=== PATIENT | female | born 1965 | race Caucasian/White ===

== ENCOUNTER 2016-08-15 07:27 | Day surgery (SDC) | payer MEDICARE, OTHER ==
[~2016-08-15] VITALS: Ht 152.4 cm; Wt 88.5 kg
[~2016-08-15 07:27] MED LIST: ACETTAB3 OR; ALBUTEROL SUL0.083 % IN; ANTI-FUNGAL12 TOP; ANUCORT-HC25 MG RE; ARTHROTEC 75 OR; ARTHROTEC 75 PO; ASPIRIN LOW DOS81 M2 PO; AZULFIDINE500 M1 PO; BACTRIM DS1 TAB PO; BENADRYL25 MG PO; BIOTIN5000 MC1 PO; BL GAS RELIE125 MG OR; BUPROPION150 MG PO; BUPROPION75 MG OR; BUSPAR5 MG PO; BUSPIRONE15 MG PO; BUSPIRONE5 MG PO; CELEXA20 M1 OR; CELEXA20 MG PO; CELEXA40 MG OR; CIPRO500 MG OR; CIPROFLOXACN250 MG PO; CITALOPRAM40 MG PO; CLARITIN10 M1 OR; CLARITIN10 MG OR; CLOTRIMAZOLE1 %; CLOTRIMAZOLE1 % TOP; CORRECTOL100 MG PO; CRANBERRY500 MG PO; CYTOTEC100 MCG PO; DICLOFENAC SOD100 M1 PO; DICLOFENAC75 MG PO; DILAUDID 2MG2 MG/TA1 PO; DULOXETINE HCL30 MG PO; ERYTHROMYCIN BAS1 GM OU; ESTRADIOL0.5 MG PO; FE C PO; FISH OIL MAXI1200 M1; FISH OIL1400 MG PO; FLEXERIL PO; FLONASE NASAL50 MCG; GABAPENTIN100 MG PO; GABAPENTIN400 MG PO; GAS RELIEF125 M2 PO; HALOPERIDOL0.5 MG PO; HYDROCHLORO25 MG/TAB PO; HYDROCHLOROT25 MG OR; HYDROCHLOROT25 MG PO; HYDROCODONE/ACE1 TAB PO; IMITREX100 M1 OR; IMITREX100 M1 PO; IMITREX25 MG PO; IRON FORMULA PO; KEFLEX500 M1 PO; KETOROLAC60 MG/2 ML IJ; LEVOTHYROXIN75 MCG PO; LIPITOR20 MG OR; LIPITOR40 MG PO; LIPITOR80 M1; LIPITOR80 MG PO; LORTAB 10 PO; LORTAB 1010 MG PO; LORTAB 5 OR; LORTAB 5/3255 MG PO; METHOTREXATE2.5 MG PO; METRONIDAZOL0.75 % VA; MIRALAX3350 NF PO; MOTRIN800 MG PO; MULTI VIT PO; NORCO1 TA1 OR; NORCO1 TA1 PO; OMEGA 31000 MG PO; PANTOPRAZOLE SO40 MG PO; PERCOCET 5/325M1 TAB OR; POLYETHYLENE3350 MG; POLYETHYLENE3350 MG PO; PREMARIN0.3 MG PO; PROAIR HFA IN; PROCTOSOL HC2.5 % RE; PROCTOZONE1 CRE RE; PROMETHAZINE12.5 M3 PO; PROMETHAZINE12.5 MG PO; PROVENTIL HFA IN; PROVENTIL0.083 % IN; PROVERA5 MG PO; QVAR40 MCG IN; SIMVASTATIN10 MG OR; SINGULAIR10 MG PO; TIZANIDINE HCL2 M1 PO; TIZANIDINE HCL2 MG PO; TIZANIDINE HCL4 M1 PO; TIZANIDINE HCL6 MG PO; TIZANIDINE2 MG PO; TIZANIDINE4 MG PO; TRAMADOL HCL50 MG OR; TRAZODONE HCL150 MG PO; TRAZODONE HCL50 MG PO; TRAZODONE100 MG OR; TRAZODONE150 MG PO; TRAZODONE50 MG OR; TRAZODONE50 MG PO; TRIAM/NYSTAT TOP; TRICOR145 MG PO; TRICOR48 MG PO; ULTRAM50 M1 PO; ULTRAM50 MG OR; ULTRAM50 MG PO; VENTOLIN HF1 IN; VIT E COMPLX400 UNIT PO; WELLBUTRIN SR150 MG PO; WELLBUTRIN100 M2 PO; WELLBUTRIN200 M1 PO; ZINC OXIDE 40% EX; ZOFRAN4 MG/TAB PO; ZOLPIDEM10 M1 PO; ZOLPIDEM5 M1 PO; ZOLPIDEM5 MG PO; ZPAK PO
[2016-08-15] MEDS ORDERED: NORCO1 TA1 PO (11:18)
[2016-08-15 11:55] VITALS: BP 177/85
== END 2016-08-15 12:00 | disposition home or self-care (01) ==
LOC: ORM 07:27
PROC: 0UDB7ZX Extraction of Endometrium, Via Natural or Artificial Opening, Diagnostic (ICD-10-PCS; principal; 2016-08-15)
DX: N95.0 Postmenopausal bleeding (principal); N93.8 Other specified abnormal uterine and vaginal bleeding; R93.8 Abnormal findings on diagnostic imaging of other specified body structures; I10 Essential (primary) hypertension; E11.9 Type 2 diabetes mellitus without complications; J44.9 Chronic obstructive pulmonary disease, unspecified; J45.909 Unspecified asthma, uncomplicated; E05.90 Thyrotoxicosis, unspecified without thyrotoxic crisis or storm; F20.9 Schizophrenia, unspecified; F33.9 Major depressive disorder, recurrent, unspecified; Z80.49 Family history of malignant neoplasm of other genital organs; Z82.49 Family history of ischemic heart disease and other diseases of the circulatory system

== ENCOUNTER 2016-10-15 13:13 | Emergency (ER) | payer MEDICARE, OTHER ==
[~2016-10-15] VITALS: Ht 152.4 cm; Wt 80.0 kg
[2016-10-15] MEDS ORDERED: SILVADENE1 % EX (13:30)
[2016-10-15 14:05] VITALS: BP 136/73
== END 2016-10-15 14:10 | disposition home or self-care (01) ==
LOC: ED 13:13
DX: L55.1 Sunburn of second degree (principal); Y92.832 Beach as the place of occurrence of the external cause

== ENCOUNTER 2017-04-01 00:22 | Emergency (ER) | payer MEDICARE, OTHER ==
[~2017-04-01] VITALS: Ht 152.4 cm; Wt 95.0 kg
[~2017-04-01 00:22] MED LIST changes: +SILVADENE1 % EX
[2017-04-01] MEDS ORDERED: PRED FORTE1 % AD (00:36)
[2017-04-01] MEDS ORDERED: IRON SLOW RELEA45 MG PO (00:36)
[2017-04-01] MEDS ORDERED: CIPRODEX1 ML OT (00:37)
[2017-04-01] MEDS ORDERED: CLIMARA0.025 MG/2 PO (00:37)
[2017-04-01] MEDS ORDERED: MEDROXYPROGESTER5 MG PO (00:38)
[2017-04-01] MEDS ORDERED: ZETIA10 MG PO (00:38)
[2017-04-01] MEDS ORDERED: TRAMADOL HCL50 MG PO (00:39)
[2017-04-01] MEDS ORDERED: ZPAK PO (01:06)
[2017-04-01] MEDS ORDERED: ULTRAM50 M1 PO (01:08)
[2017-04-01] MEDS ORDERED: CIPROFLOXACN500 MG PO (01:10)
[2017-04-01 01:20] VITALS: BP 166/83
== END 2017-04-01 01:22 | disposition home or self-care (01) ==
LOC: ED 00:22
DX: J02.9 Acute pharyngitis, unspecified (principal); H66.91 Otitis media, unspecified, right ear; E78.00 Pure hypercholesterolemia, unspecified; F32.9 Major depressive disorder, single episode, unspecified

== ENCOUNTER 2017-09-04 23:16 | Emergency (ER) | payer MEDICARE, OTHER ==
[~2017-09-04] VITALS: Ht 152.4 cm; Wt 91.6 kg
[~2017-09-04 23:16] MED LIST changes: +CIPRODEX1 ML OT; +CIPROFLOXACN500 MG PO; +CLIMARA0.025 MG/2 PO; +IRON SLOW RELEA45 MG PO; +MEDROXYPROGESTER5 MG PO; +PRED FORTE1 % AD; +TRAMADOL HCL50 MG PO; +ZETIA10 MG PO
[2017-09-05 00:18] LABS: INFLUENZA A NONE DETECTED (NONE DETECT); INFLUENZA B NONE DETECTED (NONE DETECT)
[2017-09-05] MEDS ORDERED: GENTAMICIN15 ML/BTL OU (00:34)
[2017-09-05] MEDS ORDERED: CLEOCIN300 MG PO (00:34)
[2017-09-05] MEDS ORDERED: (None)3.5 GM OU (00:34)
[2017-09-05 00:50] VITALS: BP 99/58
== END 2017-09-05 00:50 | disposition home or self-care (01) ==
LOC: ED 23:16
PROVIDERS: Emergency Medicine
DX: J02.9 Acute pharyngitis, unspecified (principal); I88.9 Nonspecific lymphadenitis, unspecified; H10.33 Unspecified acute conjunctivitis, bilateral

== ENCOUNTER 2017-11-14 13:20 | Emergency (ER) | payer MEDICARE, OTHER ==
[~2017-11-14] VITALS: Ht 152.4 cm; Wt 89.0 kg
[~2017-11-14 13:20] MED LIST changes: +(None)3.5 GM OU; +CLEOCIN300 MG PO; +GENTAMICIN15 ML/BTL OU
[2017-11-14] MEDS ORDERED: TIZANIDINE4 MG PO (14:02)
[2017-11-14] MEDS ORDERED: PROAIR HFA108 MCG/AC IN (14:08)
[2017-11-14] MEDS ORDERED: AMITIZA8 MCG PO (14:09)
[2017-11-14] MEDS ORDERED: CLARITIN10 M2 PO (14:10)
[2017-11-14] MEDS ORDERED: ATENOLOL25 MG PO (14:10)
[2017-11-14] MEDS ORDERED: TESSALON PERLE100 MG PO (14:22)
[2017-11-14 14:35] VITALS: BP 152/79
== END 2017-11-14 14:35 | disposition home or self-care (01) ==
LOC: ED 13:20
DX: R05 Cough (principal)

== ENCOUNTER 2018-06-03 15:00 | Emergency (ER) | payer MEDICARE, OTHER ==
[~2018-06-03] VITALS: Ht 152.4 cm; Wt 88.1 kg
[~2018-06-03 15:00] MED LIST changes: +AMITIZA8 MCG PO; +ATENOLOL25 MG PO; +CLARITIN10 M2 PO; +PROAIR HFA108 MCG/AC IN; +TESSALON PERLE100 MG PO
[2018-06-03 15:31] LABS: HEMATOCRIT 40.8 % (37.0-47.0); HEMOGLOBIN 13.4 g/dl (12.0-16.0); IMMATURE GRANULOCYTES 0.4 % (0.0-5.0); MEAN CORPUSCULAR HGB 33.3 pG CALC (26.0-32.0); MEAN CORPUSCULAR HGB CONC 32.8 g/L CALC (32.0-36.0); NEUT# 6.5 thou/uL (2.00-7.15); RED BLOOD COUNT 4.02 mill/uL (4.20-5.60); RED CELL DISTRI WIDTH 13.4 % (11.5-15.5)
[2018-06-03 15:32] LABS: MEAN CELL VOLUME 101.5 fL CALC (80.0-100.0)
[2018-06-03 15:50] LABS: ALBUMIN 4.4 g/dL (3.2-5.0); ALKALINE PHOSPHATASE 52 u/l (38-126); ANION GAP 17 (6-22 (CALC)); BILIRUBIN, TOTAL 0.5 mg/dL (0.0-1.4); BUN 14 mg/dL (7-17); BUN/CREATININE RATIO 21 (12-20 (CALC)); CARBON DIOXIDE 24 mmol/l (22-30); CHLORIDE 104 mmol/l (95-108); CREATININE 0.7 mg/dL (0.5-1.0); GFR > 60 ML/MIN (>=60 (CALC)); GFR FOR AFR.AMER. > 60 ML/MIN (>=60 (CALC)); POTASSIUM 4.2 mmol/l (3.5-5.1); SGOT/AST 19 u/l (14-36); SODIUM 142 mmol/l (137-146); TOTAL PROTEIN 7.3 g/dL (6.3-8.2)
[2018-06-03 16:02] LABS: MYOGLOBIN 13 ng/mL (0 - 62)
[2018-06-03] MEDS ORDERED: ALBUTEROL SUL0.083 % IN (16:46)
[2018-06-03] MEDS ORDERED: ZITHROMAX250 MG PO (16:46)
[2018-06-03 17:55] VITALS: BP 172/67
== END 2018-06-03 17:55 | disposition home or self-care (01) ==
LOC: ED 15:00
PROVIDERS: Emergency Medicine
DX: J45.901 Unspecified asthma with (acute) exacerbation (principal); M19.90 Unspecified osteoarthritis, unspecified site; F32.9 Major depressive disorder, single episode, unspecified; M79.7 Fibromyalgia; R06.02 Shortness of breath

== ENCOUNTER 2019-04-14 | Emergency (ER) | payer MEDICARE, OTHER ==
[~2019-04-14] MED LIST changes: +ZITHROMAX250 MG PO
[2019-04-14] MEDS ORDERED: ULTRAM50 M1 PO (10:13)
== END 2019-04-14 10:30 | disposition home or self-care (01) ==
DX: G43.909 Migraine, unspecified, not intractable, without status migrainosus (principal)

== ENCOUNTER 2019-04-20 13:38 | Emergency (ER) | payer MEDICARE, OTHER ==
[2019-04-20] MEDS ORDERED: BUPROPION300 MG PO (13:54)
[2019-04-20] MEDS ORDERED: CITALOPRAM40 M1 PO (13:55)
[2019-04-20] MEDS ORDERED: BUSPIRONE5 MG PO (13:55)
[2019-04-20] MEDS ORDERED: TRAZODONE50 MG PO (13:56)
[2019-04-20] MEDS ORDERED: RISPERIDONE0.5 MG PO (13:56)
[2019-04-20] MEDS ORDERED: BYSTOLIC5 MG PO (13:57)
[2019-04-20] MEDS ORDERED: ZOLPIDEM10 M1 PO (13:57)
[2019-04-20] MEDS ORDERED: FENOFIBRATE145 MG PO (13:57)
[2019-04-20] MEDS ORDERED: LIPITOR80 M1 PO (13:57)
[2019-04-20] MEDS ORDERED: EZETIMIBE10 MG PO (13:58)
[2019-04-20] MEDS ORDERED: LEVOTHYROXIN50 MCG PO (13:58)
[2019-04-20] MEDS ORDERED: LOSARTAN POTASS50 MG PO (13:58)
[2019-04-20] MEDS ORDERED: MEDROXYPR AC2.5 MG PO (13:59)
[2019-04-20] MEDS ORDERED: METFORMIN500 MG PO (13:59)
[2019-04-20] MEDS ORDERED: MONTELUKAST SOD10 MG PO (14:00)
[2019-04-20] MEDS ORDERED: LORATADINE10 M1 PO (14:00)
[2019-04-20] MEDS ORDERED: MISOPROSTOL100 MCG PO (14:00)
[2019-04-20] MEDS ORDERED: FLOVENT HF110 MCG/AC (14:01)
[2019-04-20] MEDS ORDERED: VENTOLIN HFA IN (14:05)
[2019-04-20] MEDS ORDERED: PREDNISONE5 MG PO (14:06)
[2019-04-20] MEDS ORDERED: ALBUTEROL SUL0.083 % IN (14:06)
[2019-04-20] MEDS ORDERED: AMITIZA8 MCG PO (14:08)
[2019-04-20] MEDS ORDERED: METHOTREXATE2.5 M2 PO (14:08)
[2019-04-20] MEDS ORDERED: TIZANIDINE HCL2 MG PO (14:09)
[2019-04-20] MEDS ORDERED: TESSALON PER100 MG PO (14:10)
[2019-04-20] MEDS ORDERED: ZITHROMAX500 MG PO (14:10)
[2019-04-20 14:13] VITALS: BP 130/70
== END 2019-04-20 14:17 | disposition home or self-care (01) ==
LOC: ED 13:38
DX: J20.9 Acute bronchitis, unspecified (principal); E11.9 Type 2 diabetes mellitus without complications; I10 Essential (primary) hypertension; Z79.84 Long term (current) use of oral hypoglycemic drugs

== ENCOUNTER 2019-07-10 | Emergency (ER) | payer MEDICARE, OTHER ==
[~2019-07-10] MED LIST changes: +BUPROPION300 MG PO; +BYSTOLIC5 MG PO; +CITALOPRAM40 M1 PO; +EZETIMIBE10 MG PO; +FENOFIBRATE145 MG PO; +FLOVENT HF110 MCG/AC; +LEVOTHYROXIN50 MCG PO; +LIPITOR80 M1 PO; +LORATADINE10 M1 PO; +LOSARTAN POTASS50 MG PO; +MEDROXYPR AC2.5 MG PO; +METFORMIN500 MG PO; +METHOTREXATE2.5 M2 PO; +MISOPROSTOL100 MCG PO; +MONTELUKAST SOD10 MG PO; +PREDNISONE5 MG PO; +RISPERIDONE0.5 MG PO; +TESSALON PER100 MG PO; +VENTOLIN HFA IN; +ZITHROMAX500 MG PO
[2019-07-10 13:24] LABS: HEMATOCRIT 38.8 % (37.0-47.0); HEMOGLOBIN 12.6 g/dl (12.0-16.0); IMMATURE GRANULOCYTES 0.4 % (0.0-5.0); MEAN CELL VOLUME 100.8 fL CALC (80.0-100.0); MEAN CORPUSCULAR HGB 32.7 pG CALC (26.0-32.0); MEAN CORPUSCULAR HGB CONC 32.5 g/dL CAL (32.0-36.0); NEUT# 3.75 thou/uL (2.00-7.15); RED BLOOD COUNT 3.85 mill/uL (4.20-5.60); RED CELL DISTRI WIDTH 14.2 % (11.5-15.5)
[2019-07-10 13:42] LABS: ALBUMIN 4.3 g/dL (3.2-5.0); ALKALINE PHOSPHATASE 47 u/l (38-126); AMYLASE 44 u/l (30-110); ANION GAP 10 (6-22 (CALC)); BILIRUBIN, TOTAL 0.4 mg/dL (0.0-1.4); BUN 14 mg/dL (7-17); BUN/CREATININE RATIO 23 (12-20 (CALC)); CARBON DIOXIDE 29 mmol/l (22-30); CHLORIDE 104 mmol/l (95-108); CREATININE 0.6 mg/dL (0.5-1.0); GFR > 60 ML/MIN (>=60 (CALC)); GFR FOR AFR.AMER. > 60 ML/MIN (>=60 (CALC)); LIPASE 85 u/l (23-300); POTASSIUM 3.7 mmol/l (3.5-5.1); SGOT/AST 24 u/l (14-36); SODIUM 140 mmol/l (137-146); TOTAL PROTEIN 7.1 g/dL (6.3-8.2)
[2019-07-10 13:54] LABS: MYOGLOBIN 18 ng/mL (0 - 62)
[2019-07-10] MEDS ORDERED: ESTRADIOL1 MG PO (15:07)
[2019-07-10] MEDS ORDERED: FOLIC ACI1 PO (15:08)
[2019-07-10] MEDS ORDERED: TIZANIDINE HCL2 MG PO (15:09)
[2019-07-10] MEDS ORDERED: [UNRECOGNIZED DRUG - CODE] IM (15:10)
[2019-07-10] MEDS ORDERED: BENADRYL 25MG C25 MG PO (15:11)
[2019-07-10] MEDS ORDERED: FERRAPLUS 90 PO (15:12)
[2019-07-10] MEDS ORDERED: BIOTIN EXTR10000 MCG PO (15:12)
[2019-07-10] MEDS ORDERED: FISH OIL1000 MG PO (15:13)
[2019-07-10] MEDS ORDERED: VITAMIN E400 UNIT PO (15:14)
[2019-07-10] MEDS ORDERED: SG ASA LOW81 M1 PO (15:15)
== END 2019-07-10 17:38 | disposition home or self-care (01) ==
PROVIDERS: Family Medicine
DX: R07.89 Other chest pain (principal); E11.9 Type 2 diabetes mellitus without complications; I10 Essential (primary) hypertension; Z79.84 Long term (current) use of oral hypoglycemic drugs

== ENCOUNTER 2020-08-31 13:31 | Emergency (ER) | payer MEDICARE, OTHER ==
[~2020-08-31] VITALS: Ht 152.4 cm; Wt 89.0 kg
[~2020-08-31 13:31] MED LIST changes: +BENADRYL 25MG C25 MG PO; +BIOTIN EXTR10000 MCG PO; -BUPROPION300 MG PO; +ESTRADIOL1 MG PO; +FERRAPLUS 90 PO; +FISH OIL1000 MG PO; -FLOVENT HF110 MCG/AC; +FLOVENT HF110 MCG/AC IN; +FOLIC ACI1 PO; +METFORMIN500 M2 PO; -METFORMIN500 MG PO; +METHOTREXATE S2.5 MG PO; -METHOTREXATE2.5 M2 PO; +SG ASA LOW81 M1 PO; +VITAMIN E400 UNIT PO; +WELLBUTRIN XL300 MG PO; +[UNRECOGNIZED DRUG - CODE] IM
[2020-08-31 14:28] LABS: URINE BILIRUBIN - DIPSTICK NEGATIVE (NEGATIVE); URINE BLOOD DIPSTICK SMALL (NEGATIVE); URINE COLOR YELLOW; URINE GLUCOSE - DIPSTICK NEGATIVE (NEGATIVE); URINE KETONE NEGATIVE (NEGATIVE); URINE LEUK ESTERASE TRACE (NEGATIVE); URINE NITRITE - DIPSTICK NEGATIVE (Negative); URINE PROTEIN - DIPSTICK NEGATIVE (NEG-TRACE); URINE UROBILINOGEN - DIPSTICK 0.2 E.U./dL (0.2)
[2020-08-31 14:37] LABS: URINE SQUAMOUS EPITHELIAL CELL FEW EPI/hpf (0-FEW)
[2020-08-31] MEDS ORDERED: CIPROFLOXACN500 MG PO (14:48)
[2020-08-31 14:59] VITALS: BP 142/70
== END 2020-08-31 15:03 | disposition home or self-care (01) ==
LOC: ED 13:31
DX: N39.0 Urinary tract infection, site not specified (principal); I10 Essential (primary) hypertension; E11.9 Type 2 diabetes mellitus without complications; J45.909 Unspecified asthma, uncomplicated; F32.9 Major depressive disorder, single episode, unspecified; Z79.84 Long term (current) use of oral hypoglycemic drugs; Z87.440 Personal history of urinary (tract) infections

== ENCOUNTER 2020-11-23 11:01 | Emergency (ER) | payer MEDICARE, MEDICAID ==
[~2020-11-23] VITALS: Ht 152.4 cm; Wt 90.0 kg
[2020-11-23 11:23] VITALS: BP 130/80
== END 2020-11-23 13:20 | disposition home or self-care (01) ==
LOC: ED 11:01
DX: U07.1 COVID-19 (principal); E11.9 Type 2 diabetes mellitus without complications; I10 Essential (primary) hypertension; J45.909 Unspecified asthma, uncomplicated; F32.9 Major depressive disorder, single episode, unspecified; Z79.84 Long term (current) use of oral hypoglycemic drugs

== ENCOUNTER 2020-11-30 16:10 | Inpatient (IN) | payer MEDICARE, MEDICAID ==
[~2020-11-30] VITALS: Ht 152.4 cm; Wt 88.0 kg
--- NOTE | 2020-11-30 16:54 | NUR ---
PT TO ROOM FOR TRIAGE VIA WHEELCHAIR
[2020-11-30 17:56] LABS: HEMATOCRIT 37.5 % (37.0-47.0); HEMOGLOBIN 12.5 g/dl (12.0-16.0); IMMATURE GRANULOCYTES 1.7 % (0.0-5.0); MEAN CELL VOLUME 100.3 fL CALC (80.0-100.0); MEAN CORPUSCULAR HGB 33.4 pG CALC (26.0-32.0); MEAN CORPUSCULAR HGB CONC 33.3 g/dL CAL (32.0-36.0); NEUT# 2.63 thou/uL (2.00-7.15); RED BLOOD COUNT 3.74 mill/uL (4.20-5.60); RED CELL DISTRI WIDTH 13.6 % (11.5-15.5)
[2020-11-30 18:11] LABS: D-DIMER 0.19 mg/L (0.19-0.60)
--- NOTE | 2020-11-30 18:18 | NUR ---
PT AWAITING RESULTS
[2020-11-30 18:21] LABS: ALBUMIN 4.1 g/dL (3.2-5.0); ALKALINE PHOSPHATASE 58 u/l (38-126); ANION GAP 16 (6-22 (CALC)); BILIRUBIN, TOTAL 0.4 mg/dL (0.0-1.4); BUN 9 mg/dL (7-17); BUN/CREATININE RATIO 14 (12-20 (CALC)); CARBON DIOXIDE 25 mmol/l (22-30); CHLORIDE 100 mmol/l (95-108); CREATININE 0.7 mg/dL (0.5-1.0); GFR > 60 ML/MIN (>=60 (CALC)); GFR FOR AFR.AMER. > 60 ML/MIN (>=60 (CALC)); LIPASE 222 u/l (23-300); POTASSIUM 4.2 mmol/l (3.5-5.1); SODIUM 136 mmol/l (137-146); TOTAL PROTEIN 6.9 g/dL (6.3-8.2)
[2020-11-30 18:23] LABS: SGOT/AST 43 u/l (14-36)
[2020-11-30 18:29] LABS: ACT PARTIAL THROMBO TIME 23.3 SECONDS (20.0-32.5)
--- NOTE | 2020-11-30 22:00 | NUR ---
PT RESTING IN ROOM, NO COMPLAINTS VOICED AT THIS TIME.
--- NOTE | 2020-11-30 23:18 | NUR ---
PT RESTING QUIETLY, HEART MONITOR/TELE HOOKED UP TO PT FOR MONITORING.
--- NOTE | 2020-12-01 00:18 | NUR ---
PT CONTINUES TO REST WELL, GIVEN PRN TRAMODOL FOR PAIN. NO COMPLAINTS VOICED, VSS
[2020-12-01] MEDS ORDERED: CENTRUM SILVER PO (00:52)
[2020-12-01] MEDS ORDERED: HM LUTEIN20 MG PO (00:55)
[2020-12-01] MEDS ORDERED: ACIDOPHILU1 PO (00:56)
--- NOTE | 2020-12-01 02:30 | NUR ---
PT RESTING QUIETLY, NO COMPLAINTS VOICED, VSS. PENDING BED FOR ADMISSION
[2020-12-01 06:50] LABS: HEMATOCRIT 38.1 % (37.0-47.0); HEMOGLOBIN 12.7 g/dl (12.0-16.0); IMMATURE GRANULOCYTES 1.9 % (0.0-5.0); MEAN CELL VOLUME 99.7 fL CALC (80.0-100.0); MEAN CORPUSCULAR HGB 33.2 pG CALC (26.0-32.0); MEAN CORPUSCULAR HGB CONC 33.3 g/dL CAL (32.0-36.0); NEUT# 2.65 thou/uL (2.00-7.15); RED BLOOD COUNT 3.82 mill/uL (4.20-5.60); RED CELL DISTRI WIDTH 13.4 % (11.5-15.5)
--- NOTE | 2020-12-01 06:59 | NUR ---
REPORT GIVEN TO ONCOMING SHIFT, CHARGE NURSE
[2020-12-01 07:15] LABS: ALKALINE PHOSPHATASE 48 u/l (38-126); ANION GAP 12 (6-22 (CALC)); BILIRUBIN, TOTAL 0.3 mg/dL (0.0-1.4); BUN 11 mg/dL (7-17); BUN/CREATININE RATIO 17 (12-20 (CALC)); C-REACTIVE PROTEIN 4.4 mg/dL (0-0.9); CARBON DIOXIDE 29 mmol/l (22-30); CHLORIDE 103 mmol/l (95-108); CREATININE 0.6 mg/dL (0.5-1.0); GFR > 60 ML/MIN (>=60 (CALC)); GFR FOR AFR.AMER. > 60 ML/MIN (>=60 (CALC)); POTASSIUM 4.7 mmol/l (3.5-5.1); SGOT/AST 31 u/l (14-36); SODIUM 139 mmol/l (137-146); TOTAL PROTEIN 6.7 g/dL (6.3-8.2)
[2020-12-01] MEDS ORDERED: TIZANIDINE2 MG PO (08:36)
[2020-12-01] MEDS ORDERED: TRAMADOL HCL50 MG PO (08:37)
--- NOTE | 2020-12-01 10:00 | NUR ---
PT DOES NOT HAVE HOME MEDS WITH HER SO MISSED DOSE, PT SAID SHE WILL WAIT TO TAKE HER RESPERIDAL FOR THE NIGHT DOSE
--- NOTE | 2020-12-01 10:00 | NUR ---
PT RESTING IN BED, VSS, NO COMPLAINTS AT THIS TIME, CALL LIGHT IN REACH
--- NOTE | 2020-12-01 12:00 | NUR ---
PT RESTING, ASSESSMENTS COMPLETED CHARTED
--- NOTE | 2020-12-01 19:00 | NUR ---
GAVE REPORT TO CARMEN CHESTER
--- NOTE | 2020-12-01 20:00 | NUR ---
PT DOING WELL AT THIS TIME. RESTING QUIETLY IN ROOM, NO COMPLAINTS VOICED
--- NOTE | 2020-12-01 21:00 | NUR ---
PT RESTING QUIETLY IN BED, NO COMPLAINTS VOICED
--- NOTE | 2020-12-01 22:00 | NUR ---
REPORT GIVEN TO ICU NURSE. PT TO BE TRANSFERED SHORTLY. WILL MONITOR
--- NOTE | 2020-12-01 22:30 | NUR ---
PT MOVED FROM ER TO ICU FOR CONTINUED MONITORING. PT TOLERATED TRANSFER WELL. REPORT GIVEN TO KIMBERLY LARSON.
--- NOTE | 2020-12-01 22:30 | NUR ---
RECEIVED FROM ER VIA BED-PATIENT HAD BEEN AN ER HOLD SINCE YESTERDAY EVENING AWAITING BED AVAILABILITY. ADMITTED INTO ROOM 4 A M/S OVERFLOW. PATIENT AWAKE, ALERT AND ORIENTED. RESP NON-LABORED. O2 ON AT 2 L NC. O2 SAT 90'S. BREATH SOUNDS CLEAR. HOME SERVICE ADVISOR SHOWS SR. ADMISSION ASSESSMENT COMPLETED AT THIS TIME. DISCUSSED PLAN OF CARE. EXPLAINED FALL PRECAUTIONS, PATIENT REFUSES HOSPITAL SLIPPERS. DENIES NEEDS AT THIS TIME. CALL VERGARA IN REACH.
[2020-12-01 23:00] VITALS: BP 135/69
[2020-12-02] VITALS (9 sets, daily range): BP systolic 103–1014; BP diastolic 53–76
--- NOTE | 2020-12-02 | NUR ---
RESTING WITH EYES CLOSED. RESP NON-LABORED. VSS. SB ON MONITOR.
[2020-12-02 06:09] LABS: HEMATOCRIT 35.9 % (37.0-47.0); HEMOGLOBIN 11.9 g/dl (12.0-16.0); IMMATURE GRANULOCYTES 1.4 % (0.0-5.0); MEAN CELL VOLUME 101.1 fL CALC (80.0-100.0); MEAN CORPUSCULAR HGB 33.5 pG CALC (26.0-32.0); MEAN CORPUSCULAR HGB CONC 33.1 g/dL CAL (32.0-36.0); NEUT# 5.68 thou/uL (2.00-7.15); RED BLOOD COUNT 3.55 mill/uL (4.20-5.60); RED CELL DISTRI WIDTH 13.3 % (11.5-15.5)
[2020-12-02 06:26] LABS: ALBUMIN 3.5 g/dL (3.2-5.0); ALKALINE PHOSPHATASE 43 u/l (38-126); ANION GAP 9 (6-22 (CALC)); BILIRUBIN, TOTAL 0.3 mg/dL (0.0-1.4); BUN 15 mg/dL (7-17); BUN/CREATININE RATIO 24 (12-20 (CALC)); CARBON DIOXIDE 29 mmol/l (22-30); CHLORIDE 106 mmol/l (95-108); CREATININE 0.6 mg/dL (0.5-1.0); GFR > 60 ML/MIN (>=60 (CALC)); GFR FOR AFR.AMER. > 60 ML/MIN (>=60 (CALC)); POTASSIUM 3.8 mmol/l (3.5-5.1); SGOT/AST 27 u/l (14-36); SODIUM 141 mmol/l (137-146); TOTAL PROTEIN 6.1 g/dL (6.3-8.2)
--- NOTE | 2020-12-02 07:10 | NUR ---
PT SLEEPING IN BED, AWAKENED TO COMPLETE ASSESSMENT. PT A&O X4. NO DISTRESS NOTED. O2 VIA NC @2L IN PLACE CURRENTLY SUSTAINING 96-98%. CLEAR BREATH SOUNDS UPON AUSCULTATION. ACTIVE BOWEL SOUNDS X4 QUADRANTS. CURRENTLY SB ON MONITOR WITH RATE OF 54 BPM. ACCUCHECK THIS MORNING 154, PT TO BE COVERED WITH ONE UNIT OF INSULIN PER PROTOCOL. #20G TO LAC HEALTHY AND PATENT. STRONG PEDAL PULSES BILATERALLY. ASSESSMENT COMPLETED. DISCUSSED POC. ISOLATION PRECAUTIONS IN PLACE, PT EDUCATED ON THE NEED FOR THESE PRECAUTIONS, VERBALIZED UNDERSTANDING. CALL LIGHT LEFT WITHIN REACH.
--- NOTE | 2020-12-02 12:00 | NUR ---
PT SLEEPING IN BED, NO DISTRESS NOTED. CALL LIGHT WITHIN REACH.
--- NOTE | 2020-12-02 18:00 | NUR ---
O2 TITRATED DOWN TO 1L VIA NC, PT TOLERATED WELL. SUSTAINGIN 98%. NO OTHER NEEDS AT THIS TIME. CALL LIGHT WITHIN REACH.
--- NOTE | 2020-12-02 19:50 | NUR ---
ASSESSMENT COMPLETE. PATIENT ALERT AND ORIENTED. ABLE TO MAKE NEEDS KNOWN. O2 AT 1L VIA NC. RECEIVED PRN PAIN MEDICATION PER REQUEST FOR PAIN OF 7. NO SIGNS OF DISTRESS NOTED. PATIENT DOES APPEAR TO HAVE A DRY COUGH. PRN COUGH SYRUP GIVEN PER REQUEST WELL. BELONGINGS AND CALL VERGARA WITHIN REACH.
[2020-12-03] VITALS: BP 145/58
--- NOTE | 2020-12-03 00:10 | NUR ---
PATIENT RESTING IN BED. NO COMPLAINTS VOICED. GATORADE AND CUP OF ICE PROVIDED TO PATIENT PER REQUEST. CALL LIGHT REMAINS IN REACH.
[2020-12-03 04:00] VITALS: BP 132/70
--- NOTE | 2020-12-03 05:13 | NUR ---
PATIENT RESTING IN BED, SLEEPING ON RIGHT SIDE. NO SIGNS OF PAIN OR DISTRESS NOTED. CALL VERGARA AND BELONGINGS REMAIN IN PATIENTS REACH.
--- NOTE | 2020-12-03 06:39 | NUR ---
PT C NAD. VSS. REVERBERATORY SKIMMER TO MONITOR.
--- NOTE | 2020-12-03 07:06 | NUR ---
REPORT FROM TAE LARSON. ASSUMED PT CARE.
[2020-12-03 07:44] VITALS: BP 133/55
--- NOTE | 2020-12-03 08:28 | NUR ---
DR. JANG AT BEDSIDE TO DISCUSS POC.
--- NOTE | 2020-12-03 09:29 | NUR ---
rach. dinora. pt on 1lpm riddhi malik; on phone c rach. grinder set up operator to monitor.
--- NOTE | 2020-12-03 11:32 | NUR ---
PT UP TO BSC. PT VOIDED WITHOUT DIFFICULTY. PT REMAINS ON 1L/M VIA NC. NO APPARENT DISTRESS NOTED. PT DENIES ANY CURRENT WANTS OR NEEDS. CALL LIGHT WITHIN REACH. WILL CONTINUE TO MONITOR.
[2020-12-03 12:40] VITALS: BP 140/67
--- NOTE | 2020-12-03 15:23 | NUR ---
PT SITTING UP IN BED, ALERT AND ORIENTED. NO APPARENT DISTRESS NOTED. RESPIRATIONS EVEN AND UNLABORED. O2 @ 1L/M VIA NC, SAT 96%. PT DENIES ANY PAIN OR SOB AT THIS TIME. DISCUSS PENDING TRANFER [facility], PT VERBALIZED UNDERSTANDING. CALL LIGHT WITHIN REACH. WILL CONTINUE TO MONITOR.
--- NOTE | 2020-12-03 17:04 | NUR ---
REPORT RECEIVED FROM NEMO RDZ
[2020-12-03 17:30] VITALS: BP 179/86
[2020-12-03 18:00] VITALS: BP 152/69
--- NOTE | 2020-12-03 18:10 | NUR ---
PT ARRIVED TO MED/SURG ROOM 263 IN STABLE CONDITION VIA WC ACCOMPANIED BY NEMO MAJANO;PT AMBULATED TO BEDSIDE WITH A STEADY GAIT.A&O X3, ORIENTED TO ROOM AND CALL LIGHT SYSTEM;RESPIRATIONS EVEN AND UNLABORED ON RA;PT DENIES CURRENT PAIN OR DISCOMFORTS;TELE MONITORING PLACED ON PT AT THIS TIME;IV SITE PATENT TO LAC AND ABX STARTED PER ORDER;PT REMAINS IN AIR/CONTACT PRECAUTIONS DUE TO COVID19 DX;PT ENCOURAGED TO CALL FOR ASSISTANCE IF NEEDED;FALL PRECAUTIONS IN PLACE WITH BED IN THE LOWEST POSITION AND CALL LIGHT IN REACH;WILL CONTINUE TO MONITOR
--- NOTE | 2020-12-03 20:00 | NUR ---
PATIENT AWAKE IN BED. DENEIS PAIN. C/O VAD LEAKING. VAD LAC D/C. NEW VAD #20RAC X2 ATTEMPTS. TOLERATED WELL. IVF INFUSING. ASSESSMENT COMPLETED AND CHARTED. BED IN LOW POSITION. CALL LIGHT WITHIN REACH. CYTOTEC UNAVAILABLE AND NOT GIVEN.
[2020-12-04] VITALS: BP 148/70
[2020-12-04 04:00] VITALS: BP 134/55
--- NOTE | 2020-12-04 04:32 | NUR ---
RESTING QUIETLY. NO COMPLAINTS. RESPIRATIONS EVEN AND UNLABORED.
[2020-12-04 05:41] LABS: HEMATOCRIT 35.3 % (37.0-47.0); HEMOGLOBIN 11.7 g/dl (12.0-16.0); IMMATURE GRANULOCYTES 2.9 % (0.0-5.0); MEAN CELL VOLUME 99.7 fL CALC (80.0-100.0); MEAN CORPUSCULAR HGB 33.1 pG CALC (26.0-32.0); MEAN CORPUSCULAR HGB CONC 33.1 g/dL CAL (32.0-36.0); NEUT# 4.41 thou/uL (2.00-7.15); RED BLOOD COUNT 3.54 mill/uL (4.20-5.60); RED CELL DISTRI WIDTH 13.2 % (11.5-15.5)
[2020-12-04 06:00] LABS: ALBUMIN 3.4 g/dL (3.2-5.0); ALKALINE PHOSPHATASE 52 u/l (38-126); ANION GAP 10 (6-22 (CALC)); BILIRUBIN, TOTAL 0.3 mg/dL (0.0-1.4); BUN 16 mg/dL (7-17); BUN/CREATININE RATIO 31 (12-20 (CALC)); C-REACTIVE PROTEIN 2.2 mg/dL (0-0.9); CARBON DIOXIDE 27 mmol/l (22-30); CHLORIDE 108 mmol/l (95-108); CREATININE 0.5 mg/dL (0.5-1.0); GFR > 60 ML/MIN (>=60 (CALC)); GFR FOR AFR.AMER. > 60 ML/MIN (>=60 (CALC)); POTASSIUM 3.8 mmol/l (3.5-5.1); SGOT/AST 20 u/l (14-36); SODIUM 141 mmol/l (137-146); TOTAL PROTEIN 5.9 g/dL (6.3-8.2)
--- NOTE | 2020-12-04 08:00 | NUR ---
PATIENT ALERT, VEBRAL, ABLE TO MAKE NEEDS KNOWN. VERY FLAT AFFECT THIS AM. ABLE TO TOLERATE MEDS WELL WHOLE. FSBS ORDERED WITH SSI PRN--NO S/S OF GLYCMEIC REACTION NOTED. PIV SITE PATENT TO RIGHT AC AREA--FLUSHES WELL--SITE UNREMARKABLE--SALINE LOCKED. CONT ON IV ABT THERAPY RELATED TO COVID PNEUMONIA WITH NO SIDE EFFECTS NOTED--AFEBRILE. NO O2 NEEDED THUS FAR THIS SHIFT. TELEMETRY IN PLACE WITH SINUS ANTONI @ 48. CONT OF BOWEL AND BLADDER--INDEPEDENT WITH TRANSFERS--ENCOURAGED TO CALL FOR HELP IF NEEDED. DENIES PAIN. WILL CONT TO MONITOR FOR ANY FURTHER CHANGES.
[2020-12-04 10:46] VITALS: BP 148/69
--- NOTE | 2020-12-04 11:59 | NUR ---
6 minute walk test completed--patient did well--O2 sat before starting was @ 93% on RA--maintained 92-93% throughout and afterwards reading @ 93% as well on RA--does not appear to be having exertional SOB at all.
--- NOTE | 2020-12-04 12:00 | NUR ---
PATIENT OUT OF BED ON BEDSIDE AT THIS TIME--JUST FINISHED LUNCH--ATE WELL--GOOD APPETITE--PATIENT AWAITING DISCHARGE THIS AFTERNOON FOLLOWING LAST DOSE OF REMDESIVIR. PIV SITE PATENT TO [facility] AREA--FLUSHES WELL--SITE UNREMARKABLE--SALINE LOCKED. TELEMETRY IN PLACE WITH SR @ 82. NO DISTRESS NOTED. BS @ 11AM--225--SSI RECEIVED ORDERED--NO S/S OF GLYCEMIC REACTION NOTED. WILL CONT TO MONITOR FOR ANY FURTHER CHANGES.
[2020-12-04] MEDS ORDERED: ZITHROMAX250 MG PO (12:21)
[2020-12-04] MEDS ORDERED: DEXAMETHASON6 MG PO (12:21)
[2020-12-04 15:01] VITALS: BP 159/82
--- NOTE | 2020-12-04 15:34 | NUR ---
Discharge instructions given. Patient verbalizes understanding of same. Discharged in good condition via Ambulatory to Home with *Other. All belongings sent with pt. Patient plans to drive herself home per private vehicle.
== END 2020-12-04 15:33 | disposition home or self-care (01) | DRG 177 ==
LOC: ED 16:10 → ED-I 19:05 → ICU 12-01 22:08 → MS2 12-03 18:10
PROVIDERS: Nurse Practitioner; ADMIT Internal Medicine; ATTEND Internal Medicine
PROC: XW033E5 Introduction of Remdesivir Anti-infective into Peripheral Vein, Percutaneous Approach, New Technology Group 5 (ICD-10-PCS; principal; 2020-12-01)
DX: U07.1 COVID-19 (principal); J12.82 Pneumonia due to coronavirus disease 2019; R09.02 Hypoxemia; J45.909 Unspecified asthma, uncomplicated; I10 Essential (primary) hypertension; E11.9 Type 2 diabetes mellitus without complications; M06.9 Rheumatoid arthritis, unspecified; M79.7 Fibromyalgia; F41.9 Anxiety disorder, unspecified; F32.9 Major depressive disorder, single episode, unspecified; Z79.84 Long term (current) use of oral hypoglycemic drugs; Z88.0 Allergy status to penicillin
CPT/HCPCS: G0378; J1650

== ENCOUNTER 2021-03-30 14:32 | Emergency (ER) | payer MEDICARE, MEDICAID ==
[~2021-03-30] VITALS: Ht 152.4 cm; Wt 100.0 kg
[~2021-03-30 14:32] MED LIST changes: +ACIDOPHILU1 PO; +CENTRUM SILVER PO; +DEXAMETHASON6 MG PO; +HM LUTEIN20 MG PO
[2021-03-30] MEDS ORDERED: OMNI-PAC300 MG PO (15:25)
[2021-03-30 15:36] VITALS: BP 156/83
== END 2021-03-30 15:36 | disposition home or self-care (01) ==
LOC: ED 14:32
DX: T80.62XA Other serum reaction due to vaccination, initial encounter (principal); L27.1 Localized skin eruption due to drugs and medicaments taken internally; L03.113 Cellulitis of right upper limb; I10 Essential (primary) hypertension; E11.9 Type 2 diabetes mellitus without complications; J45.909 Unspecified asthma, uncomplicated; F32.A Depression, unspecified; M79.7 Fibromyalgia; Y84.8 Other medical procedures as the cause of abnormal reaction of the patient, or of later complication, without mention of misadventure at the time of the procedure; Z79.84 Long term (current) use of oral hypoglycemic drugs

== ENCOUNTER 2021-04-04 10:51 | Emergency (ER) | payer MEDICARE, MEDICAID ==
[~2021-04-04] VITALS: Ht 152.4 cm; Wt 91.0 kg
[~2021-04-04 10:51] MED LIST changes: +OMNI-PAC300 MG PO
[2021-04-04] MEDS ORDERED: CLEOCIN300 MG PO (12:43)
[2021-04-04] MEDS ORDERED: TORADOL PO (12:43)
[2021-04-04 13:00] VITALS: BP 168/67
== END 2021-04-04 13:00 | disposition home or self-care (01) ==
LOC: ED 10:51
DX: K02.9 Dental caries, unspecified (principal); I10 Essential (primary) hypertension; E11.9 Type 2 diabetes mellitus without complications; J45.909 Unspecified asthma, uncomplicated; M79.7 Fibromyalgia; F32.A Depression, unspecified; Z79.84 Long term (current) use of oral hypoglycemic drugs

== ENCOUNTER 2021-05-05 21:14 | Emergency (ER) | payer MEDICARE, MEDICAID ==
[~2021-05-05] VITALS: Ht 152.4 cm; Wt 92.0 kg
[~2021-05-05 21:14] MED LIST changes: +TORADOL PO
[2021-05-06 01:10] LABS: URINE BILIRUBIN - DIPSTICK NEGATIVE (NEGATIVE); URINE BLOOD DIPSTICK LARGE (NEGATIVE); URINE COLOR YELLOW; URINE GLUCOSE - DIPSTICK NEGATIVE (NEGATIVE); URINE KETONE NEGATIVE (NEGATIVE); URINE LEUK ESTERASE NEGATIVE (NEGATIVE); URINE PROTEIN - DIPSTICK NEGATIVE (NEG-TRACE); URINE SPECIFIC GRAVITY 1.025; URINE UROBILINOGEN - DIPSTICK 0.2 E.U./dL (0.2)
[2021-05-06 01:11] LABS: HEMATOCRIT 37.9 % (37.0-47.0); HEMOGLOBIN 12.3 g/dl (12.0-16.0); IMMATURE GRANULOCYTES 0.7 % (0.0-5.0); MEAN CELL VOLUME 100.3 fL CALC (80.0-100.0); MEAN CORPUSCULAR HGB 32.5 pG CALC (26.0-32.0); MEAN CORPUSCULAR HGB CONC 32.5 g/dL CAL (32.0-36.0); NEUT# 12.11 thou/uL (2.00-7.15); RED BLOOD COUNT 3.78 mill/uL (4.20-5.60); RED CELL DISTRI WIDTH 13.4 % (11.5-15.5)
[2021-05-06 01:12] LABS: URINE NITRITE - DIPSTICK NEGATIVE (Negative)
[2021-05-06 01:20] LABS: URINE BACTERIA MANY hpf; URINE RBC 25-50 RBC/hpf (0-5); URINE SQUAMOUS EPITHELIAL CELL FEW EPI/hpf (0-FEW)
[2021-05-06 01:26] LABS: ALKALINE PHOSPHATASE 58 u/l (38-126); AMYLASE 56 u/l (30-110); ANION GAP 13 (6-22 (CALC)); BILIRUBIN, TOTAL 0.4 mg/dL (0.0-1.4); BUN 15 mg/dL (7-17); BUN/CREATININE RATIO 18 (12-20 (CALC)); CARBON DIOXIDE 26 mmol/l (22-30); CHLORIDE 105 mmol/l (95-108); CREATININE 0.8 mg/dL (0.5-1.0); GFR > 60 ML/MIN (>=60 (CALC)); GFR FOR AFR.AMER. > 60 ML/MIN (>=60 (CALC)); LIPASE 81 u/l (23-300); POTASSIUM 3.9 mmol/l (3.5-5.1); SGOT/AST 21 u/l (14-36); SODIUM 140 mmol/l (137-146); TOTAL PROTEIN 6.7 g/dL (6.3-8.2)
[2021-05-06] MEDS ORDERED: TORADOL PO (03:08)
[2021-05-06] MEDS ORDERED: TYLENOL # 31 TA1 PO (03:08)
[2021-05-06] MEDS ORDERED: TAMSULOSIN0.4 MG PO (03:08)
[2021-05-06 03:12] VITALS: BP 146/64
== END 2021-05-06 03:12 | disposition home or self-care (01) ==
LOC: ED 21:14
PROVIDERS: Family Medicine
DX: N20.1 Calculus of ureter (principal); I10 Essential (primary) hypertension; E11.9 Type 2 diabetes mellitus without complications; J45.909 Unspecified asthma, uncomplicated; F32.A Depression, unspecified; M79.7 Fibromyalgia; Z79.84 Long term (current) use of oral hypoglycemic drugs; Z87.442 Personal history of urinary calculi
CPT/HCPCS: Q9967

== ENCOUNTER 2021-08-31 22:45 | Observation (INO) | payer MEDICARE, MEDICAID ==
[~2021-08-31] VITALS: Ht 152.4 cm; Wt 93.0 kg
[~2021-08-31 22:45] MED LIST changes: -FOLIC ACI1 PO; +FOLIC ACID1 M1 PO; +TAMSULOSIN0.4 MG PO; +TYLENOL # 31 TA1 PO
--- NOTE | 2021-08-31 22:45 | NUR ---
ADMIT FROM HOME A/OX3 F WITH REPORTED SOB R FLANK PAIN AND FEVER
--- NOTE | 2021-08-31 23:00 | NUR ---
PT DX WITH R RENAL STONE YESTERDAY STARTED HER CIPRO TODAY.TOOK NO MED FOR FEVER AND FEW PO FLUIDS NO APPETITE
[2021-08-31 23:31] VITALS: BP 130/55
[2021-08-31 23:34] LABS: HEMATOCRIT 34.6 % (37.0-47.0); HEMOGLOBIN 11.5 g/dl (12.0-16.0); IMMATURE GRANULOCYTES 0.7 % (0.0-5.0); MEAN CELL VOLUME 100.9 fL CALC (80.0-100.0); MEAN CORPUSCULAR HGB 33.5 pG CALC (26.0-32.0); MEAN CORPUSCULAR HGB CONC 33.2 g/dL CAL (32.0-36.0); NEUT# 12.4 thou/uL (2.00-7.15); RED BLOOD COUNT 3.43 mill/uL (4.20-5.60)
[2021-08-31 23:46] VITALS: BP 113/42
[2021-08-31 23:46] LABS: ALBUMIN 3.5 g/dL (3.2-5.0); ALKALINE PHOSPHATASE 57 u/l (38-126); ANION GAP 14 (6-22 (CALC)); BILIRUBIN, TOTAL 0.4 mg/dL (0.0-1.4); BUN 30 mg/dL (7-17); BUN/CREATININE RATIO 16 (12-20 (CALC)); CARBON DIOXIDE 23 mmol/l (22-30); CHLORIDE 105 mmol/l (95-108); GFR FOR AFR.AMER. 33 ML/MIN (>=60 (CALC)); GFR OTHER RACES 28 ML/MIN (>=60 (CALC)); POTASSIUM 3.6 mmol/l (3.5-5.1); SGOT/AST 24 u/l (14-36); SODIUM 139 mmol/l (137-146); TOTAL PROTEIN 6.3 g/dL (6.3-8.2)
[2021-08-31 23:48] LABS: CREATININE 1.9 mg/dL (0.5-1.0); D-DIMER 1.45 mg/L (0.19-0.60)
[2021-08-31 23:53] LABS: ACT PARTIAL THROMBO TIME 31.1 SECONDS (20.0-32.5); INTERNATIONAL NORMALIZED RATIO 1.2 RATIO (0.7-1.3); PROTHROMBIN TIME 12.7 SECONDS (9.0-12.5)
[2021-08-31 23:58] LABS: MYOGLOBIN 73 ng/mL (0 - 62)
[2021-09-01] VITALS (8 sets, daily range): BP systolic 99–128; BP diastolic 43–86
--- NOTE | 2021-09-01 00:35 | NUR ---
PT IS AFEBRILE AND PAIN HAS RESOLVED TOOK PO WATER AND RETAINED
--- NOTE | 2021-09-01 00:40 | NUR ---
PT TRANSPORTED TO [facility] RM 278 AND PT REPORT TO NURSE ALEGRIA.
--- NOTE | 2021-09-01 00:54 | NUR ---
Pt arrived to med surg unit via wc accompanied by ed nurse. she self ambulated to the bed from the wc. Bedside report received and pt being oriented to room by distributor sales manager.
--- NOTE | 2021-09-01 01:37 | NUR ---
PT ASSESSED, IV ANTIBIOTICS COMPLETED AND IV FLUSHED. PT ARRIVED TO THE FLOOR HUNGRY ASKING FOR FOOD, TURKEY WRAP PROVIDED. SHE REPORTS BEING DIABETIC, BUT DENIES TAKING ANY MEDICATIONS FOR DIABETES. SHE HAS FINISHED EATING, BSC IS PROVIDED AT BEDSIDE AND INSTRUCTIONS TO CALL FOR ANY ASSISTANCE NEEDED, VERBALIZED UNDERSTANDING. CALL LIGHT IS IN HAND AND SAFETY MEASURES ARE IN PLACE.
--- NOTE | 2021-09-01 03:05 | NUR ---
PT SLEEPING, NO S/O DISTRESS NOTED. CALL LIGHT W/IN REACH.
[2021-09-01 05:27] LABS: HEMATOCRIT 32.7 % (37.0-47.0); HEMOGLOBIN 10.8 g/dl (12.0-16.0); IMMATURE GRANULOCYTES 1.1 % (0.0-5.0); MEAN CELL VOLUME 103.2 fL CALC (80.0-100.0); MEAN CORPUSCULAR HGB 34.1 pG CALC (26.0-32.0); NEUT# 12.54 thou/uL (2.00-7.15); RED BLOOD COUNT 3.17 mill/uL (4.20-5.60); RED CELL DISTRI WIDTH 14.1 % (11.5-15.5)
[2021-09-01 05:38] LABS: CREATININE 1.7 mg/dL (0.5-1.0); POTASSIUM 3.5 mmol/l (3.5-5.1)
--- NOTE | 2021-09-01 07:35 | NUR ---
PT LAYING IN BED. A&O X3. NO DISTRESS NOTED. PT REPORTS PAIN RATED 9 OUT OF [address] BUSCH NOTIFIED. VERBAL ORDER OBTAINED FOR MIORPHINE 1 MG IV Q6HRS PRN FOR SEVERE PAIN RATED 8-10. ORDER WRITTEN AND FAXED TO PHARMACY. CLEAR BREATH SOUNDS UPON AUSCULTATION. ACTIVE BOWEL SOUNDS X4 QUADRANTS. IV HEALTHY AND PATENT WITH IVF INFUSING PER MAR ORDER. PT REPORTS BEING IN ED 08/30 AND WAS TOLD SHE HAD "KIDNEY STONES", PT DOES NOT REPORT PASSING KIDNEY STONE; EDUCATED PT ON IMPORTANCE OF STRAINING URINE; PT VERBALIZED UNDERSTANDING. ASSESSMNET COMPLETED DISCUSSED POC. CALL LIGHT WITHIN REACH.
--- NOTE | 2021-09-01 07:35 | NUR ---
PT LAYING IN BED. A&O X3. NO DISTRESS NOTED. PT REPORTS PAIN RATED 9 OUT OF [address] BUSCH NOTIFIED. VERBAL ORDER OBTAINED FOR MORPHINE 1 MH IV Q6HRS PRN FOR SEVERE PAIN RATED 8-10. ORDER WRITTEN AND FAXED TO PHARMACY. CLEAR BREATH SOUNDS UPON AUSCULTATION. ACTIVE BOWEL SOUNDS X4 QUADRANTS. IV HEALTHY AND PATENT WITH IVF INFUSING PER MAR ORDER. PT REPORTS BEING IN ED 08/30 AND WAS TOLD SHE HAD "KIDNEY STONES", PT DOES NOT REPORT PASSING KIDNEY STONE; EDUCATED PT ON IMPORTANCE OF STRAINING URINE; PT VERBALIZED UNDERSTANDING. ASSESSMENT COMPLETED. DISCUSSED POC. CALL LIGHT WITHIN REACH.
--- NOTE | 2021-09-01 08:02 | NUR ---
PRELIMINARY BLOOD CULTURE SHOWS GRAM NEGATIVE RODS IN 2/4 VIALS, SAME SET. REPORTED TO DR BUSCH. INCREASED ROCEPHIN TO 2G DAILY
--- NOTE | 2021-09-01 10:52 | NUR ---
PT GIVEN TYLENOL #3 FOR FLANK PAIN AND HEADACHE. PT REPORTING CONCERNS REGARDING HER BP THINKING IT IS ELEVATED. PTS BP TO BE REASSESSED AFTER PAIN CONTROL. PT AGREEABLE TO PLAN. CALL LIGHT WITHIN REACH.
[2021-09-01] MEDS ORDERED: LINZESS72 MCG PO (11:04)
[2021-09-01] MEDS ORDERED: FLOVENT HF110 MCG/AC IN (11:05)
[2021-09-01] MEDS ORDERED: VITAMIN C1000 MG PO (11:06)
[2021-09-01] MEDS ORDERED: GINGER ROOT550 MG PO (11:06)
[2021-09-01] MEDS ORDERED: TURMERIC CURCUM1 CA1 PO (11:07)
[2021-09-01] MEDS ORDERED: ZINC50 MG PO (11:07)
[2021-09-01] MEDS ORDERED: REMICADE INJ100 MG IV (11:13)
[2021-09-01] MEDS ORDERED: PROVENTIL0.083 % IN (11:17)
[2021-09-01] MEDS ORDERED: ACETAMINOPHEN500 M1 PO (11:18)
[2021-09-01] MEDS ORDERED: LORTAB 5/3255 MG PO (11:48)
--- NOTE | 2021-09-01 12:00 | NUR ---
PT EATING LUNCH. NO DISTRESS NOTED. CALL LIGHT WITHIN REACH, UPDATED ON D/C PLANNING.
[2021-09-01] MEDS ORDERED: CIPROFLOXACN500 MG PO (12:01)
--- NOTE | 2021-09-01 14:10 | NUR ---
Discharge instructions given. Patient verbalizes understanding of same. Discharged in stable condition via Wheelchair to Home with CLINICAL SUPPORT NURSE staff. All belongings sent with pt.
== END 2021-09-01 14:10 | disposition home or self-care (01) ==
LOC: ED 22:45 → MS2 09-01 00:22
PROVIDERS: Family Medicine; ADMIT Hospitalist; ATTEND Hospitalist
DX: N12 Tubulo-interstitial nephritis, not specified as acute or chronic (principal); N17.9 Acute kidney failure, unspecified; E86.0 Dehydration; I10 Essential (primary) hypertension; E11.9 Type 2 diabetes mellitus without complications; J45.909 Unspecified asthma, uncomplicated; F41.9 Anxiety disorder, unspecified; F32.A Depression, unspecified; M06.9 Rheumatoid arthritis, unspecified; M79.7 Fibromyalgia; B96.1 Klebsiella pneumoniae [K. pneumoniae] as the cause of diseases classified elsewhere; Z79.84 Long term (current) use of oral hypoglycemic drugs; Z20.822 Contact with and (suspected) exposure to COVID-19
CPT/HCPCS: G0378; J1650

== ENCOUNTER 2022-09-06 17:50 | Emergency (ER) | payer MEDICARE, MEDICAID ==
[~2022-09-06] VITALS: Ht 152.4 cm; Wt 81.6 kg
[~2022-09-06 17:50] MED LIST changes: +ACETAMINOPHEN500 M1 PO; +GINGER ROOT550 MG PO; +LINZESS72 MCG PO; +REMICADE INJ100 MG IV; +TURMERIC CURCUM1 CA1 PO; +VITAMIN C1000 MG PO; +ZINC50 MG PO
[2022-09-06] MEDS ORDERED: CEFDINIR300 MG PO (18:34)
[2022-09-06 18:37] VITALS: BP 153/66
[2022-09-06 18:46] VITALS: BP 141/60
== END 2022-09-06 18:54 | disposition home or self-care (01) ==
LOC: ED 17:50
DX: H66.92 Otitis media, unspecified, left ear (principal); I10 Essential (primary) hypertension; E11.9 Type 2 diabetes mellitus without complications; J45.909 Unspecified asthma, uncomplicated; F32.A Depression, unspecified